=== PATIENT | male | born 1960 | race Hispanic/Latino ===

== ENCOUNTER 2017-06-22 13:57 | Observation (INO) | payer MEDICARE ==
[2017-06-22 13:57] VITALS: BMI 30.4
[2017-06-22] MEDS ORDERED: Morphine 4 MG/ML VIAL IV STA ×2 (15:09→18:29)
--- NOTE | 2017-06-22 15:17 | ED PDOC ---
Lower Extremity Pain/Injury Time Seen by Provider: 06/22/17 14:34 Chief Complaint (Nursing): Lower Extremity Problem/Injury Chief Complaint (Provider): Left foot pain and swelling History Per: Patient History/Exam Limitations: no limitations Onset/Duration Of Symptoms: Days Current Symptoms Are (Timing): Still Present Additional History Per: Patient Additional Complaint(s): 57yo male, with history of gout on his right foot, presents to ER for evaluation of pain, swelling and redness to his left foot. Patient states he is on a daily dose of Allopurinol but stopped taking his medication 2 days ago. He denies any weakness, numbness or tingling. No other complaints. Past Medical History Reviewed: Historical Data, Nursing Documentation, Vital Signs Vital Signs: Last Vital Signs Temp 98.5 F 06/22/17 13:59 Pulse 83 06/22/17 13:59 Resp 16 06/22/17 13:59 BP 166/92 H 06/22/17 13:59 Pulse Ox 98 06/22/17 13:59 - Medical History PMH: Arthritis (back pain), Depression, HTN, Hypercholesterolemia Denies: Asthma, Atrial Fibrillation, CHF, COPD, Diabetes, Seizures - Surgical History Surgical History: Denies: CABG, Pacemaker - Family History Family History: States: Unknown Family Hx Denies: CAD - Home Medications Home Medications: Ambulatory Orders Medication Instructions Recorded Losartan [Cozaar] 100 mg PO DAILY 08/28/15 Atorvastatin [Lipitor] 1 tab PO DAILY 05/11/16 Metoprolol Succinate [Toprol XL] 1 tab PO DAILY 05/11/16 - Allergies Allergies/Adverse Reactions: Allergies Allergy/AdvReac Type Severity Reaction Status Date / Time No Known Allergies Allergy Verified 06/22/17 13:58 Review of Systems ROS Statement: Except As Marked, All Systems Reviewed And Found Negative Musculoskeletal: Positive for: Foot Pain (left) Neurological: Negative for: Weakness, Numbness Physical Exam - Reviewed Nursing Documentation Reviewed: Yes Vital Signs Reviewed: Yes - Physical Exam Appears: Positive for: Non-toxic, No Acute Distress Head Exam: Positive for: NORMAL INSPECTION Skin: Positive for: Normal Color Neck: Positive for: Supple Cardiovascular/Chest: Positive for: Regular Rate, Rhythm Respiratory: Positive for: Normal Breath Sounds. Negative for: Respiratory Distress Pulses-Dorsalis Pedis (L): 2+ Pulses-Dorsalis Pedis (R): 2+ Extremity: Positive for: Tenderness (tenderness to left MTP), Swelling ( erythema and swelling to left foot). Negative for: Deformity Neurologic/Psych: Positive for: Alert, Oriented - Laboratory Results Result Diagrams: 06/22/17 16:00 06/22/17 16:00 - ECG O2 Sat by Pulse Oximetry: 98 (RA) Pulse Ox Interpretation: Normal Medical Decision Making Medical Decision Making: Impression: Gout Plan: -- Labs -- Toradol 15mg IVP -- Morphine 4mg IV Time: 1999 Labs reviewed and no clinically significant abnormalities noted. Patient with persistent pain. Plan for patient to be admitted due to intractable pain. Scribe Attestation: Documented by Kymberly Barrios acting as a scribe for REMY Hassan Provider Attestation: All medical record entries made by the Scribe were at my direction and personally dictated by me. I have reviewed the chart and agree that the record accurately reflects my personal performance of the history, physical exam, medical decision making, and the department course for this patient. I have also personally directed, reviewed, and agree with the discharge instructions and disposition. Disposition - Clinical Impression Clinical Impression: Gout, Intractable pain - Patient ED Disposition Is Patient to be Admitted: Yes - Disposition Disposition Time: 20:03 Condition: STABLE Forms: [employer] (Lao)
[2017-06-22] MEDS ORDERED: Morphine 4 MG/ML VIAL ONE ×2 (15:37→18:57)
[2017-06-22 16:10] LABS: BASO # 0.1 K/uL (0.0-0.2); BASO % 0.8 % (0.0-2.0); EOS # 0.1 K/uL (0.0-0.7); EOS % 0.6 % (0.0-4.0); HEMOGLOBIN 13.3 g/dL (12.0-18.0); LYMPH # 1.3 K/uL (1.0-4.3); LYMPH % 13.9 % (20.0-40.0); MEAN CELL VOLUME 91.5 fl (80.0-94.0); MEAN CORPUSCULAR HEMOGLOBIN 30.8 pg (27.0-31.0); MEAN CORPUSCULAR HGB CONC 33.6 g/dL (33.0-37.0); MEAN PLATELET VOLUME 7.8 fl (7.2-11.7); MONO # 0.7 K/uL (0.0-0.8); NEUT # 7.2 K/uL (1.8-7.0); NEUT % 77.7 % (50.0-75.0); NRBC % 0.1 % (0.0-0.0); RBC 4.33 Mil/uL (4.40-5.90); RED CELL DISTRIBUTION WIDTH 13.8 % (11.5-14.5); WHITE BLOOD COUNT 9.3 K/uL (4.8-10.8)
[2017-06-22 16:28] LABS: ALB/GLOB RATIO 1.2 (1.0-2.1); ALBUMIN 4.6 g/dL (3.5-5.0); ALT/SGPT 28 U/L (21-72); AST/SGOT 23 U/L (17-59); BLOOD UREA NITROGEN 14 mg/dl (9-20); CALCIUM 10.1 mg/dL (8.4-10.2); GFR AFRICAN-AMERICAN > 60; GFR NON-AFRICAN AMERICAN > 60; URIC ACID 7.5 mg/Dl (3.5-8.5)
[2017-06-22] MEDS ORDERED: COLCHICINE 0.6 MG CAPSULE PO ONE ×2 (22:06→23:08)
--- NOTE | 2017-06-22 22:56 | CP.PCM.HP ---
History of Present Illness - History of Present Illness History of Present Illness: 57 YO M w/ h/o gout who was recently started on Allopurinol on 06/10/17 by his PCP presents to the ER with swelling severe pain on his left foot over the last 2 days. Pain is throbbing in nature and has been worsening. Admits to not being compliant with his Allopurinol has not taken it over the last couple of days. He usually has gout flare ups in his right foot. Denies any trauma to his feet. He was given Toradol and Morphine in the ER which did not relieve his pain. - Denies any fever, chills, nausea, or vomiting. PMD: Dr. Miller PMH - HTN, Prediabetes, HLD, PSH - Pilonidal cyst excision (07/23/15) Meds :Losartan 100 mg daily, Norvasc 10mg, Amitriptaline 25mg, Atorvastatin 10mg Allergies: NKDA Social: Patient states he has 2 beers per day, but states for the last week he has stopped drinking. Patient denies illicit drug use. Present on Admission - Present on Admission Any Indicators Present on Admission: No Past Patient History - Infectious Disease Hx of Infectious Diseases: None - Past Medical History & Family History Past Medical History?: Yes - Past Social History Smoking Status: Former Smoker - CARDIAC Hx Atrial Fibrillation: No Hx Congestive Heart Failure: No Hx Hypercholesterolemia: Yes Hx Hypertension: Yes Hx Pacemaker: No - PULMONARY Hx Asthma: No Hx Chronic Obstructive Pulmonary Disease (COPD): No - NEUROLOGICAL Hx Seizures: No - HEENT Hx HEENT Problems: No - ENDOCRINE/METABOLIC Hx Endocrine Disorders: No - HEMATOLOGICAL/ONCOLOGICAL Hx Blood Disorders: No - INTEGUMENTARY Hx Dermatological Problems: Yes - MUSCULOSKELETAL/RHEUMATOLOGICAL Hx Arthritis: Yes (back pain) - GASTROINTESTINAL Hx Gastrointestinal Disorders: No - GENITOURINARY/GYNECOLOGICAL Hx Genitourinary Disorders: No - PSYCHIATRIC Hx Depression: Yes - SURGICAL HISTORY Hx Coronary Artery Bypass Graft: No - ANESTHESIA Hx Anesthesia: Yes Hx Anesthesia Reactions: No Hx Malignant Hyperthermia: No Meds Allergies/Adverse Reactions: Allergies Allergy/AdvReac Type Severity Reaction Status Date / Time No Known Allergies Allergy Verified 06/22/17 13:58 Physical Exam - Constitutional Appears: No Acute Distress - Head Exam Head Exam: NORMAL INSPECTION - Eye Exam Eye Exam: Normal appearance - Neck Exam Neck exam: Positive for: Normal Inspection - Respiratory Exam Respiratory Exam: Clear to Auscultation Bilateral, NORMAL BREATHING PATTERN. absent: Rhonchi, Wheezes - Cardiovascular Exam Cardiovascular Exam: REGULAR RHYTHM, +S1, +S2 - GI/Abdominal Exam GI & Abdominal Exam: Normal Bowel Sounds, Soft. absent: Tenderness - Extremities Exam Extremities exam: Positive for: normal inspection. Negative for: calf tenderness Additional comments: Redness and tenderness on left great toe. Swelling and redness noted on dorsal aspect of left foot. Normal range of motion. DP pulse felt b/l - Neurological Exam Neurological exam: Alert, CN II-XII Intact, Oriented x3 - Skin Skin Exam: Normal Color, Warm Results - Vital Signs Recent Vital Signs: Last Vital Signs Temp 98.3 F 06/22/17 20:31 Pulse 83 06/22/17 20:31 Resp 15 06/22/17 20:31 BP 150/82 06/22/17 20:31 Pulse Ox 98 06/22/17 21:52 - Labs Result Diagrams: 06/22/17 16:00 06/22/17 16:00 Labs: Laboratory Results - last 24 hr 06/22/17 06/22/17 16:00 16:00 WBC 9.3 D RBC 4.33 L Hgb 13.3 Hct 39.7 MCV 91.5 MCH 30.8 MCHC 33.6 RDW 13.8 Plt Count 226 MPV 7.8 Neut % (Auto) 77.7 H Lymph % (Auto) 13.9 L [place] % (Auto) 7.0 Eos % (Auto) 0.6 Baso % (Auto) 0.8 Neut # (Auto) 7.2 H Lymph # (Auto) 1.3 [place] # (Auto) 0.7 Eos # (Auto) 0.1 Baso # (Auto) 0.1 Sodium 141 Potassium 4.4 Chloride 101 Carbon Dioxide 25 Anion Gap 19 BUN 14 Creatinine 0.9 Est GFR ( Amer) > 60 Est GFR (Non-Af Amer) > 60 Random Glucose 104 Uric Acid 7.5 Calcium 10.1 Total Bilirubin 0.5 AST 23 ALT 28 Alkaline Phosphatase 56 Total Protein 8.3 H Albumin 4.6 Globulin 3.7 Albumin/Globulin Ratio 1.2 Assessment & Plan - Assessment and Plan (Free Text) Assessment: 57 YO M w/ PMH of HTN is admitted for a gout flare up. 1) Gout flare up - Uric acid: 7.5 - X ray foot ordered - Colchicine 1.2mg and .6 mg given one hour latter - C/W Colchicine .6mg daily - C/W NSAIDS - Low protein diet - Prednisone 40 mg PO daily - Pain medication ordered - F/U with X ray of foot 2) HTN - Losartan 100 mg daily, Norvasc 10 mg, 3) HLD atorvastatin 10 mg 4)Pre diabetes Hba1c: 6.1 - Continue to monitor 5) DVT prophylaxis Lovenox
[2017-06-23] MEDS ORDERED: Enoxaparin 40 mg Syringe SC SCH (09:00)
[2017-06-23] MEDS ORDERED: COLCHICINE 0.6 MG CAPSULE PO SCH (09:00)
--- NOTE | 2017-06-23 09:14 | RAD ---
PROCEDURE: Left Foot Radiographs. HISTORY: MTP pain COMPARISON: None. FINDINGS: BONES: No acute fracture. Accessory navicular. JOINTS: Degenerative changes. SOFT TISSUES: Normal. OTHER FINDINGS: Inferior plantar calcaneal spur. IMPRESSION: No demonstrated fracture or dislocation. Degenerative changes.
--- NOTE | 2017-06-23 09:53 | CP.PCM.PN ---
Subjective - Date & Time of Evaluation Date of Evaluation: 06/23/17 Time of Evaluation: 07:20 Objective - Vital Signs/Intake and Output Vital Signs (last 24 hours): Temp Pulse Resp BP Pulse Ox 97.7 F 63 20 149/91 H 99 06/23/17 08:39 06/23/17 09:04 06/23/17 08:39 06/23/17 09:04 06/23/17 08:39 - Medications Medications: Current Medications Amitriptyline HCl (Elavil) 25 mg PO [facility] Amlodipine Besylate (Norvasc) 10 mg PO DAILY [facility] Last Admin: 06/23/17 09:02 Dose: 10 mg Atorvastatin Calcium (Lipitor) 10 mg PO DAILY [facility] Last Admin: 06/23/17 09:04 Dose: 10 mg Colchicine (Colchicine) 0.6 mg PO DAILY [facility] Last Admin: 06/23/17 09:04 Dose: 0.6 mg Enoxaparin Sodium (Lovenox) 40 mg SC DAILY [facility] PRN Reason: Protocol Last Admin: 06/23/17 08:59 Dose: 40 mg Ketorolac Tromethamine (Toradol) 30 mg IVP Q6 PRN PRN Reason: Pain, moderate (4-7) Losartan Potassium (Cozaar) 100 mg PO DAILY [facility] Last Admin: 06/23/17 09:04 Dose: 100 mg Morphine Sulfate (Morphine) 2 mg IVP Q6 PRN PRN Reason: Pain, severe (8-10) Prednisone (Prednisone Tab) 40 mg PO DAILY [facility] Last Admin: 06/23/17 09:04 Dose: 40 mg - Labs Labs: 06/22/17 16:00 06/22/17 16:00
[2017-06-23 16:32] VITALS: BP 152/69; PULSE 90; RESP 19; TEMP 97.9; O2SAT 95
--- NOTE | 2017-06-23 17:26 | CP.PCM.DIS ---
Provider - Provider Date of Admission: 06/22/17 21:53 Attending physician: Denisa Mahajan MD Time Spent in preparation of Discharge (in minutes): 15 Diagnosis - Discharge Diagnosis (1) Gout Status: Acute (2) Intractable pain Status: Resolved Hospital Course - Lab Results Lab Results: Most Recent Lab Values WBC 9.3 K/uL (4.8-10.8) D 06/22/17 16:00 RBC 4.33 Mil/uL (4.40-5.90) L 06/22/17 16:00 Hgb 13.3 g/dL (12.0-18.0) 06/22/17 16:00 Hct 39.7 % (35.0-51.0) 06/22/17 16:00 MCV 91.5 fl (80.0-94.0) 06/22/17 16:00 MCH 30.8 pg (27.0-31.0) 06/22/17 16:00 MCHC 33.6 g/dL (33.0-37.0) 06/22/17 16:00 RDW 13.8 % (11.5-14.5) 06/22/17 16:00 Plt Count 226 K/uL (130-400) 06/22/17 16:00 MPV 7.8 fl (7.2-11.7) 06/22/17 16:00 Neut % (Auto) 77.7 % (50.0-75.0) H 06/22/17 16:00 Lymph % (Auto) 13.9 % (20.0-40.0) L 06/22/17 16:00 [place] % (Auto) 7.0 % (0.0-10.0) 06/22/17 16:00 Eos % (Auto) 0.6 % (0.0-4.0) 06/22/17 16:00 Baso % (Auto) 0.8 % (0.0-2.0) 06/22/17 16:00 Neut # (Auto) 7.2 K/uL (1.8-7.0) H 06/22/17 16:00 Lymph # (Auto) 1.3 K/uL (1.0-4.3) 06/22/17 16:00 [place] # (Auto) 0.7 K/uL (0.0-0.8) 06/22/17 16:00 Eos # (Auto) 0.1 K/uL (0.0-0.7) 06/22/17 16:00 Baso # (Auto) 0.1 K/uL (0.0-0.2) 06/22/17 16:00 Sodium 141 mmol/l (132-148) 06/22/17 16:00 Potassium 4.4 MMOL/L (3.6-5.0) 06/22/17 16:00 Chloride 101 mmol/L (98-107) 06/22/17 16:00 Carbon Dioxide 25 mmol/L (22-30) 06/22/17 16:00 Anion Gap 19 (10-20) 06/22/17 16:00 BUN 14 mg/dl (9-20) 06/22/17 16:00 Creatinine 0.9 mg/dl (0.8-1.5) 06/22/17 16:00 Est GFR ( Amer) > 60 06/22/17 16:00 Est GFR (Non-Af Amer) > 60 06/22/17 16:00 Random Glucose 104 mg/dL (75-110) 06/22/17 16:00 Uric Acid 7.5 mg/Dl (3.5-8.5) 06/22/17 16:00 Calcium 10.1 mg/dL (8.4-10.2) 06/22/17 16:00 Total Bilirubin 0.5 mg/dl (0.2-1.3) 06/22/17 16:00 AST 23 U/L (17-59) 06/22/17 16:00 ALT 28 U/L (21-72) 06/22/17 16:00 Alkaline Phosphatase 56 U/L (38-126) 06/22/17 16:00 Total Protein 8.3 G/DL (6.3-8.2) H 06/22/17 16:00 Albumin 4.6 g/dL (3.5-5.0) 06/22/17 16:00 Globulin 3.7 gm/dL (2.2-3.9) 06/22/17 16:00 Albumin/Globulin Ratio 1.2 (1.0-2.1) 06/22/17 16:00 - Hospital Course Hospital Course: 57 y/o man w/ pmh of HTN is admitted for a gout flare up. The patient on admission had elevated BP most likely due to pain, CBC WNL, CMP WNL, uric acid 7.5, foot XR no fractures. The patient was given colchicine and prednisone. Patient was seen by physical therapy. The patient reports improvement in pain. The patient has been seen, examined, and deemed medically fit for discharge home. The patient is to be discharged w/ prednisone 40 mg PO for 3 days and allopurinol 100 mg. The patient has an appointment on 07/07/2017 @ 13:20 w/ Dr. Miller. Discharge Exam - Head Exam Head Exam: ATRAUMATIC, NORMAL INSPECTION, NORMOCEPHALIC - Eye Exam Eye Exam: Normal appearance - ENT Exam ENT Exam: Mucous Membranes Moist - Neck Exam Neck exam: Tenderness - Respiratory Exam Respiratory Exam: Clear to PA & Lateral. absent: Decreased Breath Sounds, Rhonchi, Wheezes, Respiratory Distress, Stridor - Cardiovascular Exam Cardiovascular Exam: REGULAR RHYTHM. absent: Tachycardia - GI/Abdominal Exam GI & Abdominal Exam: Normal Bowel Sounds, Soft. absent: Distended, Tenderness - Extremities Exam Extremities exam: normal capillary refill, pedal pulses present Additional comments: edematous, tender 1st digit of left foot - Neurological Exam Neurological exam: Alert, Oriented x3 - Skin Skin Exam: Dry Discharge Plan - Discharge Medications Prescriptions: Allopurinol [Zyloprim] 100 mg PO DAILY 30 Days #30 tab predniSONE [predniSONE Tab] 40 mg PO DAILY 3 Days #3 tab - Follow Up Plan Condition: STABLE Disposition: HOME/ ROUTINE Referrals: [facility] [Outside]
== END 2017-06-23 18:27 | disposition home or self-care (01) ==
LOC: H.ER 13:57 → H.ERHOLD 21:53 → H.MEDSURG1 06-23 05:17
PROVIDERS: ADMIT Family Medicine Geriatric Medicine; ATTEND Family Medicine Geriatric Medicine
DX: M10.9 Gout, unspecified (principal); R73.03 Prediabetes; I10 Essential (primary) hypertension; E78.00 Pure hypercholesterolemia, unspecified; E78.5 Hyperlipidemia, unspecified; F32.9 Major depressive disorder, single episode, unspecified; Z87.891 Personal history of nicotine dependence; Z91.14 Patient's other noncompliance with medication regimen
CPT/HCPCS: 73630; 80053; 84550; 85025; 87040; 96374; 97162; 99285; G0378; G8978; G8979; J1650; J1885; J2270; J2930

== ENCOUNTER 2017-06-29 10:57 | Emergency (ER) | payer MEDICARE ==
[2017-06-29 10:58] VITALS: BMI 30.4
[2017-06-29 11:10] VITALS: O2SAT 100
--- NOTE | 2017-06-29 12:32 | ED PDOC ---
HPI: Abdomen Time Seen by Provider: 06/29/17 12:18 Chief Complaint (Nursing): Rib Injury Chief Complaint (Provider): right side pain History Per: Patient History/Exam Limitations: no limitations Current Symptoms Are (Timing): Gone Now Additional Complaint(s): Jame is a 57 y/o male with a history of gout, high blood pressure, and high cholesterol who presents to the ED complaining of right upper quadrant pain/ right flank pain that started this morning. Patient was cleaning his bathroom when he developed a sudden, severe pain to right rib region. He states he's had this before but not as bad, and it does not get worse after eating. He denies dysuria. He states the pain, "comes when it comes." PMD: [facility] Past Medical History Reviewed: Historical Data, Nursing Documentation, Vital Signs Vital Signs: Last Vital Signs Temp 98.4 F 06/29/17 11:08 Pulse 103 H 06/29/17 11:08 Resp 19 06/29/17 11:08 BP 169/89 H 06/29/17 11:08 Pulse Ox 100 06/29/17 13:43 - Medical History PMH: Depression, HTN, Hypercholesterolemia - Surgical History Other surgeries: pilonidal cyst removal - Family History Family History: States: Unknown Family Hx - Living Arrangements Living Arrangements: With Family - Social History Current smoker - smoking cessation education provided: No Ex-Smoker (has not smoked in the last 12 months): Yes (quit a few months ago) Alcohol: < 2 Drinks/Day (has not drank in the past 2 weeks due to gout meds) Drugs: Denies (past cocaine abuser, clean for several years) - Home Medications Home Medications: Ambulatory Orders Medication Instructions Recorded Losartan [Cozaar] 100 mg PO DAILY 08/28/15 Allopurinol [Zyloprim] 100 mg PO DAILY 30 Days #30 tab 06/23/17 Amitriptyline [Elavil] 25 mg PO HS tab 06/23/17 Atorvastatin [Lipitor] 20 mg PO HS 06/23/17 Gemfibrozil [Lopid] 600 mg PO BID 06/23/17 amLODIPine [Norvasc] 10 mg PO DAILY 06/23/17 amLODIPine [Norvasc] 10 mg PO DAILY tab 06/23/17 predniSONE [predniSONE Tab] 40 mg PO DAILY 3 Days #3 tab 06/23/17 Cyclobenzaprine [Cyclobenzaprine 10 mg PO TID PRN #20 tab 06/29/17 HCl] Ibuprofen [Motrin Tab] 800 mg PO Q8 PRN #20 tab 06/29/17 - Allergies Allergies/Adverse Reactions: Allergies Allergy/AdvReac Type Severity Reaction Status Date / Time No Known Allergies Allergy Verified 06/22/17 13:58 Review of Systems ROS Statement: Except As Marked, All Systems Reviewed And Found Negative Constitutional: Negative for: Fever Cardiovascular: Positive for: Chest Pain (right side rib pain) Respiratory: Negative for: Cough, Shortness of Breath, SOB with Exertion Gastrointestinal: Positive for: Abdominal Pain (right side) Genitourinary Male: Negative for: Dysuria, Frequency, Incontinence Musculoskeletal: Negative for: Back Pain Neurological: Negative for: Headache, Dizziness Physical Exam - Reviewed Nursing Documentation Reviewed: Yes Vital Signs Reviewed: Yes - Physical Exam Appears: Positive for: Well, Non-toxic, No Acute Distress Head Exam: Positive for: ATRAUMATIC Skin: Positive for: Normal Color, Warm. Negative for: Rash Eye Exam: Positive for: Normal appearance Neck: Positive for: Normal, Painless ROM. Negative for: Pain On Movement Of Neck Cardiovascular/Chest: Positive for: Regular Rate, Rhythm, Other (tenderness right lateral chest wall, no ecchymosis or swelling). Negative for: Murmur Respiratory: Positive for: Normal Breath Sounds. Negative for: Accessory Muscle Use, Rhonchi, Wheezing, Respiratory Distress Gastrointestinal/Abdominal: Positive for: Soft, Tenderness (RUQ), Other (obese abdomen) Back: Positive for: R CVA Tenderness (mild). Negative for: L CVA Tenderness Extremity: Positive for: Normal ROM Neurologic/Psych: Positive for: Alert, Oriented. Negative for: Motor/Sensory Deficits - Laboratory Results Result Diagrams: 06/29/17 12:41 06/29/17 12:41 Urine dip results: Negative for: Leukocyte Esterase, Blood, Nitrate, Ketones, Glucose, Bilirubin, Protein - ECG Interpretation Of ECG: Normal sinus rhythm 69 bpm, LVH, reviewed by PA and ED attending O2 Sat by Pulse Oximetry: 100 (RA) Pulse Ox Interpretation: Normal - Other Rad CXR with right rib series X-Ray: Viewed By Me, Read By Radiologist X-Ray Interpretation: see below GB US X-Ray: Viewed By Me, Read By Radiologist X-Ray Interpretation: see below Medical Decision Making Medical Decision Making: Time: 12:30 Initial Impression: 57 y/o male with right side pain Initial Plan: --EKG --CMP --Urine Dip --CBC --XR Ribs and Chest --US Gallbladder and Common Duct --Pain meds declined by patient CXR: Unremarkable radiographs of the chest and right ribs. No right rib fracture. Thoracic spondylosis. Right shoulder arthrosis. US: FINDINGS: LIVER: Measures 16.9 cm in length. Diffuse increased echogenicity of the liver parenchyma. No mass. No intrahepatic bile duct dilatation. GALLBLADDER: Unremarkable. No gallstones. COMMON BILE DUCT: Measures 4.7 mm. No stones. No dilatation. PANCREAS: Diffuse increased echogenicity -can be seen with diffuse fatty infiltration as visualized. No mass. No ductal dilatation. RIGHT KIDNEY: Measures 11.6 x 5.6 x 5.3 cm in length. Normal echogenicity. No calculus, mass, or hydronephrosis. AORTA: No aneurysmal dilatation. IVC: Unremarkable. OTHER FINDINGS: None. IMPRESSION: Hepatomegaly with hepatic steatosis - similar. No interval pathology noted. Patient is aware of all diagnostic testing results, all questions answered. Prescriptions given for Motrin and Flexeril to take as needed for pain. Patient was instructed to follow-up with clinic for any persistent symptoms. Scribe Attestation: Documented by Sung Grissom, acting as a scribe for Carie Mas PA-C Provider Scribe Attestation: All medical record entries made by the Scribe were at my direction and personally dictated by me. I have reviewed the chart and agree that the record accurately reflects my personal performance of the history, physical exam, medical decision making, and the department course for this patient. I have also personally directed, reviewed, and agree with the discharge instructions and disposition. Disposition - Clinical Impression Clinical Impression: Right flank pain - Patient ED Disposition Is Patient to be Admitted: No Counseled Patient/Family Regarding: Studies Performed, Diagnosis, Need For Followup, Rx Given - Disposition Referrals: [facility] [Outside] Disposition: Routine/Home Disposition Time: 14:31 Condition: STABLE Additional Instructions: Take rx meds as directed as needed for pain. Follow up with clinic for any persistent symptoms. Prescriptions: Cyclobenzaprine [Cyclobenzaprine HCl] 10 mg PO TID PRN #20 tab PRN Reason: Muscle Spasm Ibuprofen [Motrin Tab] 800 mg PO Q8 PRN #20 tab PRN Reason: Pain, Moderate (4-7) Instructions: Flank Pain (DC), Muscle Strain Forms: [employer] (Togolese) Results - Lab Results Lab Results: 06/29/17 06/29/17 12:41 12:41 WBC 9.1 RBC 4.96 Hgb 15.3 D Hct 45.3 MCV 91.4 MCH 30.9 MCHC 33.8 RDW 13.7 Plt Count 305 MPV 7.7 Neut % (Auto) 59.6 Lymph % (Auto) 26.4 [place] % (Auto) 11.8 H Eos % (Auto) 1.7 Baso % (Auto) 0.5 Neut # (Auto) 5.4 Lymph # (Auto) 2.4 [place] # (Auto) 1.1 H Eos # (Auto) 0.2 Baso # (Auto) 0.0 Sodium 141 Potassium 4.4 Chloride 101 Carbon Dioxide 25 Anion Gap 19 BUN 18 Creatinine 1.0 Est GFR ( Amer) > 60 Est GFR (Non-Af Amer) > 60 Random Glucose 100 Calcium 10.8 H Total Bilirubin 0.8 AST 30 ALT 41 Alkaline Phosphatase 58 Total Protein 8.7 H Albumin 4.9 Globulin 3.8 Albumin/Globulin Ratio 1.3
[2017-06-29 13:12] LABS: ALB/GLOB RATIO 1.3 (1.0-2.1); ALBUMIN 4.9 g/dL (3.5-5.0); ALT/SGPT 41 U/L (21-72); AST/SGOT 30 U/L (17-59); BASO % 0.5 % (0.0-2.0); BLOOD UREA NITROGEN 18 mg/dl (9-20); CALCIUM 10.8 mg/dL (8.4-10.2); EOS # 0.2 K/uL (0.0-0.7); EOS % 1.7 % (0.0-4.0); GFR AFRICAN-AMERICAN > 60; GFR NON-AFRICAN AMERICAN > 60; HEMOGLOBIN 15.3 g/dL (12.0-18.0); LYMPH # 2.4 K/uL (1.0-4.3); LYMPH % 26.4 % (20.0-40.0); MEAN CELL VOLUME 91.4 fl (80.0-94.0); MEAN CORPUSCULAR HEMOGLOBIN 30.9 pg (27.0-31.0); MEAN CORPUSCULAR HGB CONC 33.8 g/dL (33.0-37.0); MEAN PLATELET VOLUME 7.7 fl (7.2-11.7); MONO # 1.1 K/uL (0.0-0.8); MONO % 11.8 % (0.0-10.0); NEUT # 5.4 K/uL (1.8-7.0); NEUT % 59.6 % (50.0-75.0); RBC 4.96 Mil/uL (4.40-5.90); RED CELL DISTRIBUTION WIDTH 13.7 % (11.5-14.5); WHITE BLOOD COUNT 9.1 K/uL (4.8-10.8)
--- NOTE | 2017-06-29 13:15 | RAD ---
PROCEDURE: Radiographs of the Chest and Right Ribs. HISTORY: right side rib pain COMPARISON: 06/30/2015 TECHNIQUE: Frontal radiograph of the chest and multiple oblique radiographs of the right ribs were obtained. FINDINGS: RIGHT RIBS: No fracture or focal lesion visualized. LUNGS: Clear. PLEURA: No pneumothorax or pleural fluid. CARDIOVASCULAR: Normal sized heart. No pulmonary vascular congestion. OTHER FINDINGS: Thoracic spondylosis. Right shoulder arthrosis IMPRESSION: Unremarkable radiographs of the chest and right ribs. No right rib fracture. Thoracic spondylosis. Right shoulder arthrosis
--- NOTE | 2017-06-29 14:04 | US ---
HISTORY: RUQ pain COMPARISON: 10/30/2016 TECHNIQUE: Sonographic evaluation of the right upper quadrant of the abdomen. FINDINGS: LIVER: Measures 16.9 cm in length. Diffuse increased echogenicity of the liver parenchyma. No mass. No intrahepatic bile duct dilatation. GALLBLADDER: Unremarkable. No gallstones. COMMON BILE DUCT: Measures 4.7 mm. No stones. No dilatation. PANCREAS: Diffuse increased echogenicity -can be seen with diffuse fatty infiltration as visualized. No mass. No ductal dilatation. RIGHT KIDNEY: Measures 11.6 x 5.6 x 5.3 cm in length. Normal echogenicity. No calculus, mass, or hydronephrosis. AORTA: No aneurysmal dilatation. IVC: Unremarkable. OTHER FINDINGS: None . IMPRESSION: Hepatomegaly with hepatic steatosis - similar. No interval pathology noted
[2017-06-29 14:44] VITALS: BP 150/89; PULSE 81; RESP 18; TEMP 98
--- NOTE | 2017-07-01 18:22 | CARD ---
APPROVED REPORT EKG Measurement Heart [id number] <Conclusion> Normal sinus rhythm Minimal voltage criteria for LVH, may be normal variant Borderline ECG
== END 2017-06-29 14:45 | disposition home or self-care (01) ==
LOC: H.ER 10:57
DX: R10.11 Right upper quadrant pain (principal); E78.00 Pure hypercholesterolemia, unspecified; I10 Essential (primary) hypertension; K76.0 Fatty (change of) liver, not elsewhere classified; M10.9 Gout, unspecified